=== PATIENT | male | born 1945 | race Two or more races ===

== ENCOUNTER 2017-05-12 08:49 | Outpatient (CLI) | payer OTHER ==
[~2017-05-12 08:49] MED LIST: NABUMETONE500 MG PO; PERCOCET 5/3251 TAB PO; TRAMADOL HCL100 MG
== END 2017-05-12 08:52 | disposition home or self-care (01) ==
LOC: RAD 08:49
DX: M75.121 Complete rotator cuff tear or rupture of right shoulder, not specified as traumatic (principal); M75.122 Complete rotator cuff tear or rupture of left shoulder, not specified as traumatic; M25.511 Pain in right shoulder; M25.512 Pain in left shoulder

== ENCOUNTER 2017-05-15 09:53 | Outpatient (CLI) | payer OTHER | END 2017-05-15 10:05 | disposition home or self-care (01) | LOC: SONOGRAMA 09:53 | DX: M25.512 Pain in left shoulder (principal); M75.42 Impingement syndrome of left shoulder ==

== ENCOUNTER → 2017-06-04 | Emergency (ER) | payer OTHER ==
[~2017-06-04] VITALS: Ht 160 cm; Wt 81.2 kg
== END | disposition home or self-care (01) ==
LOC: ER 09:15
DX: R05 Cough (principal); J11.1 Influenza due to unidentified influenza virus with other respiratory manifestations

== ENCOUNTER → 2017-08-11 | Outpatient (CLI) | payer OTHER | END | disposition home or self-care (01) | LOC: MRI 11:10 | DX: M25.511 Pain in right shoulder (principal); M75.41 Impingement syndrome of right shoulder | CPT/HCPCS: 73221 ==

== ENCOUNTER 2017-09-10 09:18 | Outpatient (CLI) | payer OTHER | END 2017-09-10 16:11 | disposition home or self-care (01) | LOC: MRI 09:18 | DX: M25.511 Pain in right shoulder (principal); M54.5 Low back pain | CPT/HCPCS: 72141 ==

== ENCOUNTER 2017-09-17 09:30 | Outpatient (CLI) | payer OTHER | END 2017-09-17 15:49 | disposition home or self-care (01) | LOC: RAD 09:30 | DX: M25.512 Pain in left shoulder (principal) ==

== ENCOUNTER 2017-10-27 11:01 | Outpatient (CLI) | payer OTHER | END 2017-10-27 11:12 | disposition home or self-care (01) | LOC: SONOGRAMA 11:01 | DX: M25.512 Pain in left shoulder (principal); M75.42 Impingement syndrome of left shoulder ==

== ENCOUNTER 2018-02-22 11:32 | Outpatient (CLI) | payer OTHER | END 2018-02-22 11:34 | disposition home or self-care (01) | LOC: RAD 11:32 | DX: M94.0 Chondrocostal junction syndrome [Tietze] (principal) ==

== ENCOUNTER 2018-03-24 10:16 | Outpatient (CLI) | payer OTHER | END 2018-03-24 10:19 | disposition home or self-care (01) | LOC: RAD 10:16 | DX: H25.012 Cortical age-related cataract, left eye (principal); Z98.42 Cataract extraction status, left eye ==

== ENCOUNTER 2018-05-13 08:45 | Outpatient (CLI) | payer OTHER | END 2018-05-13 17:00 | disposition home or self-care (01) | LOC: SONOGRAMA 08:45 | DX: M25.511 Pain in right shoulder (principal); M75.41 Impingement syndrome of right shoulder ==

== ENCOUNTER 2018-08-23 09:49 | Outpatient (CLI) | payer OTHER | END 2018-08-23 11:31 | disposition home or self-care (01) | LOC: MRI 09:49 | DX: M75.121 Complete rotator cuff tear or rupture of right shoulder, not specified as traumatic (principal) | CPT/HCPCS: 73221 ==

== ENCOUNTER 2018-12-09 09:31 | Outpatient (CLI) | payer OTHER | END 2018-12-09 09:38 | disposition home or self-care (01) | LOC: RAD 09:31 | DX: M62.40 Contracture of muscle, unspecified site (principal); M62.830 Muscle spasm of back; M25.512 Pain in left shoulder; J30.89 Other allergic rhinitis; E78.49 Other hyperlipidemia; M81.0 Age-related osteoporosis without current pathological fracture; M66.821 Spontaneous rupture of other tendons, right upper arm; M75.01 Adhesive capsulitis of right shoulder; M75.121 Complete rotator cuff tear or rupture of right shoulder, not specified as traumatic; M19.211 Secondary osteoarthritis, right shoulder; S43.431A Superior glenoid labrum lesion of right shoulder, initial encounter; M25.419 Effusion, unspecified shoulder ==

== ENCOUNTER 2019-01-05 09:41 | Outpatient (CLI) | payer OTHER | END 2019-01-05 09:43 | disposition home or self-care (01) | LOC: NUCLEAR 09:41 | DX: M25.461 Effusion, right knee (principal); M25.462 Effusion, left knee; M79.662 Pain in left lower leg; M79.661 Pain in right lower leg ==

== ENCOUNTER 2019-02-09 11:24 | Outpatient (CLI) | payer OTHER | END 2019-02-09 11:36 | disposition home or self-care (01) | LOC: RAD 11:24 | DX: M25.561 Pain in right knee (principal) ==

== ENCOUNTER 2019-02-24 10:16 | Emergency (ER) | payer OTHER ==
[~2019-02-24] VITALS: Ht 157.5 cm; Wt 86.2 kg
== END 2019-02-24 13:52 | disposition home or self-care (01) ==
LOC: ER 10:16
DX: S30.0XXA Contusion of lower back and pelvis, initial encounter (principal); M54.5 Low back pain; W18.09XA Striking against other object with subsequent fall, initial encounter; Y93.89 Activity, other specified; Y92.510 Bank as the place of occurrence of the external cause; Y99.8 Other external cause status

== ENCOUNTER 2019-07-05 08:10 | Outpatient (CLI) | payer OTHER | END 2019-07-05 08:34 | disposition home or self-care (01) | LOC: LAB 08:10 | DX: R97.20 Elevated prostate specific antigen [PSA] (principal); M62.40 Contracture of muscle, unspecified site; M62.830 Muscle spasm of back; M25.512 Pain in left shoulder; J30.89 Other allergic rhinitis; E78.49 Other hyperlipidemia; M81.0 Age-related osteoporosis without current pathological fracture; M66.821 Spontaneous rupture of other tendons, right upper arm; M75.01 Adhesive capsulitis of right shoulder; M75.121 Complete rotator cuff tear or rupture of right shoulder, not specified as traumatic; M19.211 Secondary osteoarthritis, right shoulder; S43.431A Superior glenoid labrum lesion of right shoulder, initial encounter; M25.419 Effusion, unspecified shoulder; M25.50 Pain in unspecified joint; M25.522 Pain in left elbow; M54.5 Low back pain; E55.9 Vitamin D deficiency, unspecified; M25.511 Pain in right shoulder; E11.51 Type 2 diabetes mellitus with diabetic peripheral angiopathy without gangrene; S82.042A Displaced comminuted fracture of left patella, initial encounter for closed fracture; S82.402A Unspecified fracture of shaft of left fibula, initial encounter for closed fracture; J06.9 Acute upper respiratory infection, unspecified; Z68.26 Body mass index [BMI] 26.0-26.9, adult; Z12.11 Encounter for screening for malignant neoplasm of colon; N41.0 Acute prostatitis; N41.8 Other inflammatory diseases of prostate; C18.2 Malignant neoplasm of ascending colon; D12.3 Benign neoplasm of transverse colon; D12.8 Benign neoplasm of rectum ==

== ENCOUNTER → 2019-07-14 | Outpatient (CLI) | payer OTHER | END | disposition home or self-care (01) | LOC: TOM 07:30 | DX: C18.2 Malignant neoplasm of ascending colon (principal) | CPT/HCPCS: 74177; Q9965 ==

== ENCOUNTER 2019-07-20 13:33 | Outpatient (CLI) | payer OTHER ==
[~2019-07-20] VITALS: Ht 160 cm; Wt 83.9 kg
== END 2019-07-20 13:39 | disposition home or self-care (01) ==
LOC: LAB 13:33
DX: Z01.812 Encounter for preprocedural laboratory examination (principal); Z01.810 Encounter for preprocedural cardiovascular examination; Z01.811 Encounter for preprocedural respiratory examination; C18.2 Malignant neoplasm of ascending colon; R59.0 Localized enlarged lymph nodes; K92.2 Gastrointestinal hemorrhage, unspecified; C78.7 Secondary malignant neoplasm of liver and intrahepatic bile duct; I10 Essential (primary) hypertension

== ENCOUNTER 2019-07-25 08:30 | Inpatient (IN) | payer OTHER ==
[~2019-07-25] VITALS: Ht 157.5 cm; Wt 83.0 kg
--- NOTE | 2019-07-25 08:46 | NUR ---
SE RECIBE AL PACIENTE ALERTA Y ORIENTADO EN JULISSA LI ESFERAS. PACIENTE REFIERE QUE VIENE POR DOLOR EN EL COSTADO AL RESPIRAR. PACIENTE REFEIRE TAMBIEN SENTIRSE FALTA DE AIRE Y CON CONGESTION NASAL. AL MOMENTO SATURANDO A 93% MAX.
--- NOTE | 2019-07-25 09:17 | NUR ---
PTE. REFIERE MALESTAR GENERAL. EVALUADO PTE. POR DRA. BERMUDEZ. SE ORIENTA SOBRE TRATAMIENTO, MUESTRAS TOMADAS Y SE ENVIAN AL LABORATORIO.
[2019-07-26] MEDS ORDERED: ENDOCET 5-3251 EACH (13:53)
[2019-07-26] MEDS ORDERED: ULTRAM50 MG (13:53)
[2019-07-26] MEDS ORDERED: GLIMEPIRIDE4 M1 PO (13:54)
[2019-07-26] MEDS ORDERED: SIMVASTATIN20 MG PO (13:54)
[2019-07-26] MEDS ORDERED: TELMISARTAN-HC1 EAC2 PO (13:54)
[2019-07-29] MEDS ORDERED: TAMSULOSIN HCL0.4 MG PO (08:06)
[2019-07-29] MEDS ORDERED: AMLODIPINE BESYL5 MG PO (08:06)
== END 2019-07-29 10:23 | disposition home or self-care (01) | DRG 689 ==
LOC: ER 08:30 → MEDJ 13:38
PROVIDERS: ADMIT Internal Medicine
PROC: BF37ZZZ Magnetic Resonance Imaging (MRI) of Pancreas (ICD-10-PCS; principal; 2019-07-26)
DX: N39.0 Urinary tract infection, site not specified (principal); K83.1 Obstruction of bile duct; C18.4 Malignant neoplasm of transverse colon; C78.5 Secondary malignant neoplasm of large intestine and rectum; Q61.02 Congenital multiple renal cysts